=== PATIENT | female | born 1960 | race Two or more races ===

== ENCOUNTER 2020-06-08 21:10 | Inpatient (IN) | payer MEDICAID, OTHER ==
[~2020-06-08] VITALS: Ht 157.5 cm; Wt 76.2 kg
[2020-06-08] MEDS ORDERED: LORazepam 2MG/ML-1ML VIAL ONE (21:39)
[2020-06-08] MEDS ORDERED: LORazepam 2MG/ML-1ML VIAL IV ONE (21:45)
[2020-06-08 22:07] LABS: Basophils # (auto) 0 10 ^3/uL (0-0.2); Basophils % (auto) 0.3 % (0.0-2.0); Eosinophils # (auto) 0.1 10 ^3/uL (0-0.8); Eosinophils % (auto) 0.8 % (0.0-7.0); Hematocrit 29.7 % (36.0-46.0); Hemoglobin 9.5 g/dL (12.2-16.2); Lymphocytes # (auto) 0.3 10 ^3/uL (0.4-5.4); Lymphocytes % (auto) 2.7 % (10.0-50.0); Mean Corpuscular Hemoglobin 30.5 pg (28.0-32.0); Mean Corpuscular Hgb Conc. 31.9 g/dL (32.0-36.0); Mean Corpuscular Volume 95.7 fL (80.0-100.0); Monocytes # (auto) 0.4 10 ^3/uL (0-1.3); Monocytes % (auto) 3.6 % (0.0-12.0); Neutrophils # (auto) 9.2 10 ^3/uL (1.6-8.6); Neutrophils % (auto) 92.6 % (37.0-80.0); Platelet Count (auto) 169 10^3/uL (140-450); Red Blood Cells 3.11 10^6/uL (4.0-5.20)
[2020-06-08 22:29] LABS: Albumin 2.4 g/dL (3.4-5.0); Calcium 9.4 mg/dL (8.5-10.1); INR 0.92 (0.9-1.15); Partial Thromboplastin Time 25.7 sec (23.0-31.2)
[2020-06-08] MEDS ORDERED: ONDANSETRON HCL 4 MG/2 ML VIAL IV ONE (22:30)
[2020-06-08] MEDS ORDERED: MORPHINE SULFATE 4 MG/ML SYR/VIAL IV ONE (22:30)
[2020-06-08 22:36] LABS: BUN/Creatinine Ratio 6.9; Bilirubin, Total 0.4 mg/dL (0.2-1.0); Total Protein 5.8 g/dL (6.4-8.2)
[2020-06-08] MEDS ORDERED: ONDANSETRON HCL 4 MG/2 ML VIAL IV PRN (23:15)
[2020-06-08] MEDS ORDERED: MORPHINE SULF INJ 2 MG/ML SYRINGE 1ML IV PRN (23:15)
[2020-06-08] MEDS ORDERED: NITROGLYCERIN 0.4 MG SL TAB SL PRN (23:15)
[2020-06-08] MEDS ORDERED: HYDROcodone-ACET 5/325MG TAB PO PRN (23:15)
[2020-06-08] MEDS ORDERED: ACETAMINOPHEN 325 MG TAB PO PRN (23:15)
[2020-06-08] MEDS ORDERED: DEXTROSE (50%) 50ML SYRG IV PRN (23:15)
[2020-06-08] MEDS ORDERED: NOREPINEPHRINE 8 MG/250ML KIT 250 ML IV ONE (23:38)
[2020-06-09] VITALS (53 sets, daily range): BP systolic 91–148; BP diastolic 29–72
[2020-06-09] MEDS ORDERED: NOREPINEPHRINE 8 MG/250ML KIT 250 ML IV SCH ×2 (00:15→11:45)
[2020-06-09] MEDS ORDERED: DOPamine 1600MCG/ML D5W 250 ML IV ONE ×2 (00:19→00:22)
[2020-06-09] MEDS: DOPamine 1600MCG/ML D5W 250 ML IV SCH ×3 (00:25→10:30)
[2020-06-09] MEDS: ACCU-CHEK COMFORT CURVE STRIP VI SCH ×5 (00:48→23:59)
[2020-06-09] MEDS: InsuLIN REG 1unit/0.01ml Soln (100units/ml) SC SCH ×4 (00:51→18:30)
[2020-06-09] MEDS ORDERED: ONDANSETRON HCL 4 MG/2 ML VIAL IV ONE (01:30)
[2020-06-09] MEDS ORDERED: MORPHINE SULFATE 4 MG/ML SYR/VIAL IV ONE (01:30)
[2020-06-09 10:14] LABS: Basophils # (auto) 0.1 10 ^3/uL (0-0.2); Basophils % (auto) 0.9 % (0.0-2.0); Eosinophils # (auto) 0.1 10 ^3/uL (0-0.8); Eosinophils % (auto) 0.7 % (0.0-7.0); Hematocrit 33.1 % (36.0-46.0); Hemoglobin 10.5 g/dL (12.2-16.2); Lymphocytes # (auto) 0.8 10 ^3/uL (0.4-5.4); Mean Corpuscular Hemoglobin 30.2 pg (28.0-32.0); Mean Corpuscular Hgb Conc. 31.7 g/dL (32.0-36.0); Mean Corpuscular Volume 95.4 fL (80.0-100.0); Monocytes # (auto) 0.9 10 ^3/uL (0-1.3); Monocytes % (auto) 5.7 % (0.0-12.0); Neutrophils # (auto) 13.3 10 ^3/uL (1.6-8.6); Neutrophils % (auto) 87.7 % (37.0-80.0); Platelet Count (auto) 231 10^3/uL (140-450); Red Blood Cells 3.47 10^6/uL (4.0-5.20); White Blood Cell 15.2 10^3/uL (4.4-10.8)
[2020-06-09 10:17] LABS: Albumin 2.6 g/dL (3.4-5.0); Calcium 9.9 mg/dL (8.5-10.1); Potassium 4.5 mmol/L (3.5-5.1)
[2020-06-09 10:20] LABS: BUN/Creatinine Ratio 7.1; Bilirubin, Total 0.4 mg/dL (0.2-1.0); Total Protein 6.8 g/dL (6.4-8.2)
[2020-06-09] MEDS: PANTOPRAZOLE 40 MG TAB PO SCH (10:30)
[2020-06-09] MEDS: ASPirin 81 mg TAB PO SCH ×2 (10:41→18:29)
[2020-06-09] MEDS: PERITONEAL DIALYSIS 2.5% SOLN 2,000 ML IP SCH ×4 (12:20→22:11)
[2020-06-09] MEDS ORDERED: KETOROLAC TROMETH 30 MG/ML 1ML VIAL IV PRN (13:30)
[2020-06-09] MEDS ORDERED: fentaNYL CITRATE 100 MCG/2 ML VL ONE (14:23)
[2020-06-09] MEDS ORDERED: VANCOMYCIN HCL 1000 MG VL ONE (14:23)
[2020-06-09] MEDS ORDERED: MIDAZOLAM HCL 1MG/1ML-2 ML VIAL ONE (14:23)
[2020-06-09] MEDS ORDERED: LIDOCAINE 2%HCL (LOCAL ANESTH.) INJ 20ML MDV ONE (14:23)
[2020-06-09] MEDS ORDERED: VANCOMYCIN 1GM/250ML 250 ML IV ONE (14:24)
[2020-06-09] MEDS ORDERED: FUROSEMIDE 20 MG/2 ML VIAL ONE (15:27)
[2020-06-09] MEDS: ceFAZolin 1GM/50ML 50 ML IV SCH ×2 (18:29→23:54)
[2020-06-09] MEDS: VANCOMYCIN 1GM/250ML 250 ML IV SCH (21:46)
[2020-06-09] MEDS ORDERED: ATORVASTATIN 20 MG TAB PO SCH (22:00)
[2020-06-10] VITALS (30 sets, daily range): BP systolic 100–146; BP diastolic 49–80
[2020-06-10] MEDS: PERITONEAL DIALYSIS 2.5% SOLN 2,000 ML IP SCH ×3 (02:45→10:56)
[2020-06-10] MEDS ORDERED: SEVE800T8 PO (03:31)
[2020-06-10] MEDS ORDERED: GEN03OS HM (03:34)
[2020-06-10] MEDS ORDERED: EPOE20005 IJ (03:36)
[2020-06-10] MEDS ORDERED: PRE5T PO (03:41)
[2020-06-10] MEDS ORDERED: AMOX250C3 PO (03:43)
[2020-06-10] MEDS ORDERED: POTA-220 PO (03:44)
[2020-06-10] MEDS ORDERED: ALBU108A5 IN (03:47)
[2020-06-10] MEDS ORDERED: CALC0.253 PO (03:51)
[2020-06-10] MEDS ORDERED: CINA30TA2 PO (03:52)
[2020-06-10] MEDS ORDERED: SIMV10TA73 PO (03:54)
[2020-06-10] MEDS ORDERED: GLIP10TA3 PO (03:59)
[2020-06-10] MEDS ORDERED: [UNRECOGNIZED DRUG - CODE] TOP (04:00)
[2020-06-10] MEDS ORDERED: LEFL20TA PO (04:01)
[2020-06-10] MEDS ORDERED: ACET-1156 PO (04:02)
[2020-06-10 05:01] LABS: Basophils # (auto) 0 10 ^3/uL (0-0.2); Basophils % (auto) 0.3 % (0.0-2.0); Eosinophils # (auto) 0.2 10 ^3/uL (0-0.8); Eosinophils % (auto) 2.6 % (0.0-7.0); Hematocrit 28.5 % (36.0-46.0); Hemoglobin 9.2 g/dL (12.2-16.2); Lymphocytes # (auto) 0.7 10 ^3/uL (0.4-5.4); Mean Corpuscular Hemoglobin 30.7 pg (28.0-32.0); Mean Corpuscular Hgb Conc. 32.3 g/dL (32.0-36.0); Mean Corpuscular Volume 95.2 fL (80.0-100.0); Monocytes # (auto) 0.4 10 ^3/uL (0-1.3); Monocytes % (auto) 4.6 % (0.0-12.0); Neutrophils # (auto) 8.1 10 ^3/uL (1.6-8.6); Neutrophils % (auto) 85.5 % (37.0-80.0); Platelet Count (auto) 164 10^3/uL (140-450); Red Blood Cells 2.99 10^6/uL (4.0-5.20); White Blood Cell 9.5 10^3/uL (4.4-10.8)
[2020-06-10 05:22] LABS: Red Cell Distribution Width 21.4 % (11.8-14.3)
[2020-06-10 05:43] LABS: Albumin 2.2 g/dL (3.4-5.0); Calcium 9.3 mg/dL (8.5-10.1)
[2020-06-10] MEDS: ACCU-CHEK COMFORT CURVE STRIP VI SCH ×2 (05:44→12:00)
[2020-06-10] MEDS: InsuLIN REG 1unit/0.01ml Soln (100units/ml) SC SCH ×3 (05:44→12:00)
[2020-06-10 05:47] LABS: Bilirubin, Total 0.4 mg/dL (0.2-1.0); Total Protein 5.6 g/dL (6.4-8.2)
[2020-06-10] MEDS: ceFAZolin 1GM/50ML 50 ML IV SCH (08:10)
[2020-06-10] MEDS: ASPirin 81 mg TAB PO SCH (09:55)
[2020-06-10] MEDS: PANTOPRAZOLE 40 MG TAB PO SCH (09:55)
[2020-06-10] MEDS: VANCOMYCIN 1GM/250ML 250 ML IV SCH (09:56)
[2020-06-10] MEDS ORDERED: predniSONE 5 MG TAB PO ONE (11:00)
[2020-06-10] MEDS ORDERED: SEVELAMER 800 MG TAB PO SCH (12:00)
[2020-06-10] MEDS ORDERED: DOXY-286 PO (12:06)
== END 2020-06-10 16:14 | disposition home or self-care (01) | DRG 171 ==
LOC: EDBD 21:10 → ER 21:14 → TELE 21:15 → ICU WEST 06-09 04:00
PROVIDERS: ADMIT Nurse Practitioner; ATTEND Internal Medicine
PROC: 3E1M39Z Irrigation of Peritoneal Cavity using Dialysate, Percutaneous Approach (ICD-10-PCS; 2020-06-09)
PROC: 0JH606Z Insertion of Pacemaker, Dual Chamber into Chest Subcutaneous Tissue and Fascia, Open Approach (ICD-10-PCS; principal; 2020-06-10)
PROC: 02H63JZ Insertion of Pacemaker Lead into Right Atrium, Percutaneous Approach (ICD-10-PCS; 2020-06-10)
PROC: 02HK3JZ Insertion of Pacemaker Lead into Right Ventricle, Percutaneous Approach (ICD-10-PCS; 2020-06-10)
DX: I44.2 Atrioventricular block, complete (principal); E11.22 Type 2 diabetes mellitus with diabetic chronic kidney disease; N18.6 End stage renal disease; D63.1 Anemia in chronic kidney disease; I50.32 Chronic diastolic (congestive) heart failure; R65.10 Systemic inflammatory response syndrome (SIRS) of non-infectious origin without acute organ dysfunction; I13.2 Hypertensive heart and chronic kidney disease with heart failure and with stage 5 chronic kidney disease, or end stage renal disease; E83.39 Other disorders of phosphorus metabolism; Z20.828 Contact with and (suspected) exposure to other viral communicable diseases; I05.0 Rheumatic mitral stenosis; Z99.2 Dependence on renal dialysis; Z88.8 Allergy status to other drugs, medicaments and biological substances; Z79.899 Other long term (current) drug therapy; R00.1 Bradycardia, unspecified; E44.0 Moderate protein-calorie malnutrition; Z68.26 Body mass index [BMI] 26.0-26.9, adult
CPT/HCPCS: 33208; 36415; 71045; 80053; 82306; 82962; 83036; 83735; 83880; 83970; 84100; 84443; 84484; 85025; 85379; 85610; 85730; 87040; 87081; 87205; 89051; 93005; 93306; 99152; 99291; C1785; G0378; J0690; J1815; J2250; J2405

== ENCOUNTER 2020-06-12 17:08 | Inpatient (IN) | payer MEDICAID ==
[~2020-06-12] VITALS: Ht 157.5 cm; Wt 72.6 kg
[~2020-06-12 17:08] MED LIST: ACET-1156 PO; ALBU108A5 IN; AMOX250C3 PO; CALC0.253 PO; CINA30TA2 PO; DOXY-286 PO; EPOE20005 IJ; GEN03OS HM; GLIP10TA3 PO; LEFL20TA PO; POTA-220 PO; PRE5T PO; SEVE800T8 PO; SIMV10TA73 PO; [UNRECOGNIZED DRUG - CODE] TOP
[2020-06-12] MEDS ORDERED: ONDANSETRON HCL 4 MG/2 ML VIAL IV ONE (17:30)
[2020-06-12] MEDS ORDERED: MORPHINE SULFATE 4 MG/ML SYR/VIAL IV ONE (17:30)
[2020-06-12 18:56] LABS: Hematocrit 29.8 % (36.0-46.0); Hemoglobin 9.6 g/dL (12.2-16.2); Mean Corpuscular Hemoglobin 30.5 pg (28.0-32.0); Mean Corpuscular Hgb Conc. 32.1 g/dL (32.0-36.0); Platelet Count (auto) 183 10^3/uL (140-450); Red Blood Cells 3.14 10^6/uL (4.0-5.20); White Blood Cell 9.1 10^3/uL (4.4-10.8)
[2020-06-12 18:58] LABS: Red Cell Distribution Width 21.7 % (11.8-14.3)
[2020-06-12 19:00] LABS: Band Neutrophils % (manual) 0; Basophils % (manual) 0 (0.0-2.0); Blast Cells 0; Metamyelocytes % 0; Myelocytes % 0; Promyelocytes % 0; Reactive Lymphocytes 0
[2020-06-12 19:19] LABS: Calcium 9.7 mg/dL (8.5-10.1); Chloride 100 mmol/L (98-107); Potassium 3.9 mmol/L (3.5-5.1); Sodium 137 mmol/L (136-145)
[2020-06-12 19:27] LABS: Alanine Aminotransferase < 6 U/L (13-56); Albumin 2.3 g/dL (3.4-5.0); Alkaline Phosphatase 125 U/L (45-117); Anion Gap 10 (5-15); Aspartate Aminotransferase 16 U/L (15-37); Bilirubin, Total 0.4 mg/dL (0.2-1.0); Blood Urea Nitrogen 71 mg/dL (7-18); Carbon Dioxide 27 mmol/L (21-32); GFR African American 5 mL/min; GFR Non-African American 4 mL/min; Glucose 102 mg/dL (74-106); Lipase 302 U/L (73-393); Total Protein 6.3 g/dL (6.4-8.2)
[2020-06-12 19:31] LABS: Eosinophils % (manual) 2 (0-7); Lymphocytes % (manual) 1 (10.0-50.0); Monocytes % (manual) 5 (0-12)
[2020-06-12] MEDS ORDERED: NITROGLYCERIN 0.4 MG SL TAB SL PRN (22:30)
[2020-06-12] MEDS ORDERED: ACETAMINOPHEN 325 MG TAB PO PRN (22:30)
[2020-06-12] MEDS ORDERED: MORPHINE SULF INJ 2 MG/ML SYRINGE 1ML IV PRN (22:30)
[2020-06-12] MEDS ORDERED: MORPHINE SULFATE 4 MG/ML SYR/VIAL IV PRN (22:30)
[2020-06-12] MEDS ORDERED: ONDANSETRON HCL 4 MG/2 ML VIAL IV PRN (22:30)
[2020-06-12] MEDS ORDERED: DOCUSATE SOD 100 MG CAP PO PRN (22:30)
[2020-06-12] MEDS ORDERED: EPOETIN ALFA 20000 UNIT IJ SCH (22:45)
[2020-06-12] MEDS ORDERED: GLIPIZIDE 10 MG PO SCH (22:45)
[2020-06-12] MEDS ORDERED: ALBUTEROL SULF HFA 90MCG INH 200DOSE IN SCH (22:45)
[2020-06-12] MEDS ORDERED: DEXTROSE (50%) 50ML SYRG IV PRN (23:30)
[2020-06-12] MEDS ORDERED: ALBUTEROL SULF 2.5 MG/0.5ML(0.5%) NEB SOLN NEB PRN (23:45)
[2020-06-13 00:35] LABS: Basophils # (auto) 0 10 ^3/uL (0-0.2); Basophils % (auto) 0.4 % (0.0-2.0); Eosinophils # (auto) 0.3 10 ^3/uL (0-0.8); Eosinophils % (auto) 2.8 % (0.0-7.0); Hematocrit 27.8 % (36.0-46.0); Lymphocytes # (auto) 0.7 10 ^3/uL (0.4-5.4); Lymphocytes % (auto) 7.8 % (10.0-50.0); Mean Corpuscular Hemoglobin 30.5 pg (28.0-32.0); Mean Corpuscular Hgb Conc. 32.4 g/dL (32.0-36.0); Mean Corpuscular Volume 94.1 fL (80.0-100.0); Monocytes # (auto) 0.5 10 ^3/uL (0-1.3); Monocytes % (auto) 5.1 % (0.0-12.0); Neutrophils # (auto) 7.9 10 ^3/uL (1.6-8.6); Neutrophils % (auto) 83.9 % (37.0-80.0); Nucleated Red Blood Cells % 0.1 %; Platelet Count (auto) 179 10^3/uL (140-450); Red Blood Cells 2.95 10^6/uL (4.0-5.20); White Blood Cell 9.4 10^3/uL (4.4-10.8)
[2020-06-13 00:44] LABS: Red Cell Distribution Width 21.6 % (11.8-14.3)
[2020-06-13 00:53] LABS: Alanine Aminotransferase < 6 U/L (13-56); Albumin 2.2 g/dL (3.4-5.0); Anion Gap 14 (5-15); Aspartate Aminotransferase 13 U/L (15-37); BUN/Creatinine Ratio 6.6; Blood Urea Nitrogen 70 mg/dL (7-18); Calcium 9.6 mg/dL (8.5-10.1); Carbon Dioxide 25 mmol/L (21-32); Chloride 100 mmol/L (98-107); GFR African American 5 mL/min; GFR Non-African American 4 mL/min; Glucose 55 mg/dL (74-106); Potassium 4.1 mmol/L (3.5-5.1); Sodium 139 mmol/L (136-145)
[2020-06-13 00:55] LABS: Alkaline Phosphatase 116 U/L (45-117); Bilirubin, Total 0.4 mg/dL (0.2-1.0)
[2020-06-13 01:29] VITALS: BP 111/48
[2020-06-13] MEDS ORDERED: SODIUM CHLOR 0.9% PF (SALINE LOCK) 10ML VIAL/SYR IV SCH (06:00)
[2020-06-13] MEDS ORDERED: SEVELAMER 800 MG TAB PO SCH (06:00)
[2020-06-13] MEDS ORDERED: ACCU-CHEK COMFORT CURVE STRIP VI SCH (07:00)
[2020-06-13] MEDS ORDERED: InsuLIN REG 1unit/0.01ml Soln (100units/ml) SC SCH ×2 (07:00→22:00)
[2020-06-13] MEDS ORDERED: EPOETIN ALFA 10,000 UNIT/1 ML VIAL SC SCH (07:15)
[2020-06-13] MEDS ORDERED: ASPirin 81 mg TAB PO SCH (10:00)
[2020-06-13] MEDS ORDERED: PANTOPRAZOLE 40 MG/10 ML VIAL INJ IV SCH (10:00)
[2020-06-13] MEDS ORDERED: CALCITRIOL 0.25 MCG CAP PO SCH (10:00)
[2020-06-13] MEDS ORDERED: ENOXAPARIN SOD 40 MG/0.4 ML SYRINGE SC SCH (10:00)
[2020-06-13] MEDS ORDERED: FAMOTIDINE 20 MG TAB PO SCH (10:00)
[2020-06-13] MEDS ORDERED: LEFLUNOMIDE 20 MG PO SCH (10:00)
== END 2020-06-13 02:10 | disposition short-term general hospital (02) | DRG 254 ==
LOC: EDBD 17:08 → EDUNIT# 17:08 → ER 17:08 → TELE 17:09
PROVIDERS: ADMIT Nurse Practitioner Family; ATTEND Nurse Practitioner Family
DX: K59.00 Constipation, unspecified (principal); E11.22 Type 2 diabetes mellitus with diabetic chronic kidney disease; I12.0 Hypertensive chronic kidney disease with stage 5 chronic kidney disease or end stage renal disease; N18.6 End stage renal disease; D64.9 Anemia, unspecified; E78.5 Hyperlipidemia, unspecified; F32.9 Major depressive disorder, single episode, unspecified; Z83.3 Family history of diabetes mellitus; Z99.2 Dependence on renal dialysis; Z88.8 Allergy status to other drugs, medicaments and biological substances; Z79.4 Long term (current) use of insulin
CPT/HCPCS: 36415; 71045; 74176; 76700; 80053; 82962; 83036; 83690; 84484; 85007; 85025; 85027; G0378

== ENCOUNTER 2020-09-15 12:27 | Inpatient (IN) | payer MEDICAID ==
[~2020-09-15] VITALS: Ht 152.4 cm; Wt 75.1 kg
[~2020-09-15 12:27] MED LIST changes: +SIMV10TA2 PO; -SIMV10TA73 PO
[2020-09-15] MEDS ORDERED: ASPirin 81 mg TAB PO ONE (13:15)
[2020-09-15 13:54] LABS: Albumin 2.6 g/dL (3.4-5.0); Anion Gap 11 (5-15); BUN/Creatinine Ratio 5.5; Basophils # (auto) 0.1 10 ^3/uL (0-0.2); Basophils % (auto) 0.5 % (0.0-2.0); Blood Urea Nitrogen 57 mg/dL (7-18); Calcium 9.3 mg/dL (8.5-10.1); Carbon Dioxide 24 mmol/L (21-32); Chloride 103 mmol/L (98-107); GFR African American 5 mL/min; GFR Non-African American 4 mL/min; Glucose 231 mg/dL (74-106); Hemoglobin 8.7 g/dL (12.2-16.2); Lymphocytes # (auto) 0.8 10 ^3/uL (0.4-5.4); Sodium 138 mmol/L (136-145)
[2020-09-15 13:55] LABS: Eosinophils # (auto) 0.2 10 ^3/uL (0-0.8); Hematocrit 27.6 % (36.0-46.0); Lymphocytes % (auto) 6.6 % (10.0-50.0); Mean Corpuscular Hemoglobin 29.9 pg (28.0-32.0); Mean Corpuscular Hgb Conc. 31.6 g/dL (32.0-36.0); Mean Corpuscular Volume 94.6 fL (80.0-100.0); Monocytes # (auto) 0.6 10 ^3/uL (0-1.3); Monocytes % (auto) 4.7 % (0.0-12.0); Neutrophils % (auto) 86.2 % (37.0-80.0); Nucleated Red Blood Cells % 0.1 %; Platelet Count (auto) 258 10^3/uL (140-450); Red Blood Cells 2.92 10^6/uL (4.0-5.20); Red Cell Distribution Width 18.8 % (11.8-14.3); White Blood Cell 12.7 10^3/uL (4.4-10.8)
[2020-09-15 14:05] LABS: Alanine Aminotransferase 28 U/L (13-56); Alkaline Phosphatase 130 U/L (45-117); Aspartate Aminotransferase 17 U/L (15-37); Bilirubin, Total 0.4 mg/dL (0.2-1.0); Total Protein 6.5 g/dL (6.4-8.2)
[2020-09-15] MEDS ORDERED: DEXTROSE (50%) 50ML SYRG IV PRN ×2 (16:45→18:00)
[2020-09-15] MEDS ORDERED: NITROGLYCERIN 0.4 MG SL TAB SL PRN ×2 (16:45→18:00)
[2020-09-15] MEDS ORDERED: MORPHINE SULF INJ 2 MG/ML SYRINGE 1ML IV PRN ×3 (16:45→18:00)
[2020-09-15] MEDS ORDERED: InsuLIN REG 1unit/0.01ml Soln (100units/ml) SC SCH ×2 (17:00→22:00)
[2020-09-15] MEDS ORDERED: ACCU-CHEK COMFORT CURVE STRIP VI SCH (17:00)
[2020-09-15] MEDS ORDERED: ALBUTEROL SULF HFA 90MCG INH 200DOSE IN PRN (18:00)
[2020-09-15] MEDS ORDERED: ACETAMINOPHEN 500 MG TAB PO PRN (18:00)
[2020-09-15] MEDS ORDERED: ALUM & MAG HYDROX-SIMETH LIQ(MAALOX) 30 ML PO PRN (18:00)
[2020-09-15] MEDS ORDERED: ONDANSETRON HCL 4 MG/2 ML VIAL IV PRN (18:00)
[2020-09-15] MEDS ORDERED: LORazepam 0.5 MG TAB PO PRN (18:00)
[2020-09-15] MEDS ORDERED: DOCUSATE SOD 100 MG CAP PO PRN (18:00)
[2020-09-15] MEDS ORDERED: HYDROcodone-ACET 5/325MG TAB PO PRN (18:00)
[2020-09-15] MEDS ORDERED: GENT0.1C3 TOP (18:09)
[2020-09-15] MEDS ORDERED: DOXE1CAP4 PO (18:12)
[2020-09-15] MEDS ORDERED: CETI10TA80 PO (18:12)
[2020-09-15] MEDS ORDERED: hydrALAZINE HCL 20 MG/ML VL IV PRN (19:15)
[2020-09-15] MEDS: ACCU-CHEK COMFORT CURVE STRIP VI SCH (21:54)
[2020-09-15] MEDS: ISOSORBIDE MONONITRATE IR 20 MG TAB PO SCH (21:54)
[2020-09-15] MEDS: ENOXAPARIN SOD 40 MG/0.4 ML SYRINGE SC SCH (21:54)
[2020-09-15] MEDS: InsuLIN REG 1unit/0.01ml Soln (100units/ml) SC SCH (21:54)
[2020-09-15] MEDS ORDERED: BUDESONIDE (INHALATION) 180 MCG IH IN SCH (22:00)
[2020-09-15 23:43] LABS: Basophils # (auto) 0 10 ^3/uL (0-0.2); Basophils % (auto) 0.4 % (0.0-2.0); Eosinophils # (auto) 0.1 10 ^3/uL (0-0.8); Eosinophils % (auto) 1.1 % (0.0-7.0); Hematocrit 29.2 % (36.0-46.0); Hemoglobin 9.5 g/dL (12.2-16.2); Lymphocytes # (auto) 1.2 10 ^3/uL (0.4-5.4); Lymphocytes % (auto) 12.8 % (10.0-50.0); Mean Corpuscular Hemoglobin 30.3 pg (28.0-32.0); Mean Corpuscular Hgb Conc. 32.5 g/dL (32.0-36.0); Mean Corpuscular Volume 93.4 fL (80.0-100.0); Monocytes # (auto) 0.5 10 ^3/uL (0-1.3); Monocytes % (auto) 5.6 % (0.0-12.0); Neutrophils # (auto) 7.5 10 ^3/uL (1.6-8.6); Neutrophils % (auto) 80.1 % (37.0-80.0); Platelet Count (auto) 236 10^3/uL (140-450); Red Blood Cells 3.13 10^6/uL (4.0-5.20); Red Cell Distribution Width 18.5 % (11.8-14.3); White Blood Cell 9.3 10^3/uL (4.4-10.8)
[2020-09-16 00:05] LABS: Calcium 9.4 mg/dL (8.5-10.1); Magnesium 3.1 mg/dL (1.6-2.6); Potassium 5.1 mmol/L (3.5-5.1)
[2020-09-16 00:16] LABS: Albumin 2.7 g/dL (3.4-5.0); BUN/Creatinine Ratio 5.8; Bilirubin, Total 0.5 mg/dL (0.2-1.0); CRP High Sensitivity 7.29 mg/dL (< 0.3); Total Protein 7.1 g/dL (6.4-8.2)
[2020-09-16 00:20] LABS: Cholesterol 152 mg/dL (< 200); HDL Cholesterol 94 mg/dL (40-59); LDL Cholesterol 60 mg/dL (< 100); Triglycerides 45 mg/dL (< 150)
[2020-09-16] MEDS: FUROSEMIDE 40 MG/4 ML VIAL IV SCH ×2 (06:00→17:36)
[2020-09-16] MEDS: ACCU-CHEK COMFORT CURVE STRIP VI SCH ×4 (06:56→23:15)
[2020-09-16] MEDS: InsuLIN REG 1unit/0.01ml Soln (100units/ml) SC SCH ×4 (06:57→22:00)
[2020-09-16 08:00] VITALS: BP 134/70
[2020-09-16] MEDS: SEVELAMER 800 MG TAB PO SCH ×3 (08:18→17:36)
[2020-09-16 08:22] LABS: Albumin 2.2 g/dL (3.4-5.0); Calcium 9.2 mg/dL (8.5-10.1); Potassium 4.6 mmol/L (3.5-5.1)
[2020-09-16 08:25] LABS: BUN/Creatinine Ratio 5.5; Bilirubin, Total 0.5 mg/dL (0.2-1.0); Total Protein 5.9 g/dL (6.4-8.2)
[2020-09-16 08:37] LABS: Basophils # (auto) 0 10 ^3/uL (0-0.2); Eosinophils # (auto) 0.3 10 ^3/uL (0-0.8); Hemoglobin 8.2 g/dL (12.2-16.2); Lymphocytes # (auto) 1.1 10 ^3/uL (0.4-5.4); Monocytes # (auto) 0.5 10 ^3/uL (0-1.3)
[2020-09-16 08:39] LABS: Basophils % (auto) 0.4 % (0.0-2.0); Eosinophils % (auto) 4.2 % (0.0-7.0); Hematocrit 25.4 % (36.0-46.0); Lymphocytes % (auto) 13.7 % (10.0-50.0); Mean Corpuscular Hemoglobin 30.1 pg (28.0-32.0); Mean Corpuscular Hgb Conc. 32.3 g/dL (32.0-36.0); Mean Corpuscular Volume 93.3 fL (80.0-100.0); Monocytes % (auto) 6.4 % (0.0-12.0); Neutrophils % (auto) 75.3 % (37.0-80.0); Platelet Count (auto) 180 10^3/uL (140-450); Red Blood Cells 2.72 10^6/uL (4.0-5.20); Red Cell Distribution Width 18.7 % (11.8-14.3)
[2020-09-16 09:07] VITALS: BP 134/70
[2020-09-16] MEDS ORDERED: CHOLECALCIFEROL (VITD3) 2,000 UNIT CAP PO SCH (10:00)
[2020-09-16] MEDS: DOXYCYCLINE 100MG/250ML 250 ML IV SCH ×3 (10:00→23:14)
[2020-09-16] MEDS: ENOXAPARIN SOD 40 MG/0.4 ML SYRINGE SC SCH ×2 (10:00→23:15)
[2020-09-16] MEDS ORDERED: DexAMETHasone SOD PHOS 10MG/1ML VIAL INJ IV SCH (10:00)
[2020-09-16] MEDS ORDERED: ZINC SULFATE 220mg CAP or TAB PO SCH (10:00)
[2020-09-16] MEDS ORDERED: ASCORBIC ACID 1,000 MG TAB PO SCH (10:00)
[2020-09-16] MEDS: ISOSORBIDE MONONITRATE IR 20 MG TAB PO SCH ×2 (10:31→22:00)
[2020-09-16 16:00] VITALS: BP 122/68
[2020-09-16 22:07] LABS: Urine Bacteria NONE SEEN /hpf (None Seen); Urine Blood 1+ /uL (Negative); Urine Specific Gravity 1.013 (1.001-1.035); Urine WBC 5 /hpf (0 - 5)
[2020-09-16 22:20] LABS: Amphetamine Screen, Urine NEGATIVE (NEGATIVE); Barbiturate Scree,Urine NEGATIVE (NEGATIVE); Benzodiazephine Screen, Urine NEGATIVE (NEGATIVE); Cannabinoid Screen, Urine NEGATIVE (NEGATIVE); Cocaine Screen, Urine NEGATIVE (NEGATIVE); Opiate Scree,Urine NEGATIVE (NEGATIVE); Phencyclidine Screen, Urine NEGATIVE (NEGATIVE)
[2020-09-16 23:58] VITALS: BP 110/78
[2020-09-17] MEDS ORDERED: METO25TA5 PO (03:11)
[2020-09-17] MEDS ORDERED: BENZ100C97 PO (03:11)
[2020-09-17] MEDS ORDERED: HYDR-3682 PO (03:11)
[2020-09-17] MEDS ORDERED: HYDR50TA69 PO (03:11)
[2020-09-17] MEDS: ACCU-CHEK COMFORT CURVE STRIP VI SCH ×4 (05:36→22:21)
[2020-09-17] MEDS: InsuLIN REG 1unit/0.01ml Soln (100units/ml) SC SCH ×4 (05:36→22:00)
[2020-09-17] MEDS: FUROSEMIDE 40 MG/4 ML VIAL IV SCH ×2 (05:36→17:48)
[2020-09-17 08:00] VITALS: BP 114/67
[2020-09-17] MEDS: SEVELAMER 800 MG TAB PO SCH ×3 (08:00→18:21)
[2020-09-17] MEDS: ENOXAPARIN SOD 40 MG/0.4 ML SYRINGE SC SCH ×2 (09:44→22:21)
[2020-09-17] MEDS: DOXYCYCLINE 100MG/250ML 250 ML IV SCH ×2 (09:44→22:20)
[2020-09-17] MEDS: ISOSORBIDE MONONITRATE IR 20 MG TAB PO SCH ×2 (10:00→22:25)
[2020-09-17] MEDS: PERITONEAL DIALYSIS 2.5% SOLN 2,000 ML IP SCH ×3 (12:00→22:00)
[2020-09-17 16:00] VITALS: BP 126/75
[2020-09-17 22:00] VITALS: BP 146/73
[2020-09-18] MEDS: hydrOXYzine 25 MG TAB or CAP PO PRN ×2 (00:51→19:45)
[2020-09-18 05:00] VITALS: BP 113/55
[2020-09-18] MEDS: PERITONEAL DIALYSIS 2.5% SOLN 2,000 ML IP SCH ×4 (06:00→21:52)
[2020-09-18] MEDS: ACCU-CHEK COMFORT CURVE STRIP VI SCH ×4 (06:02→21:53)
[2020-09-18] MEDS: FUROSEMIDE 40 MG/4 ML VIAL IV SCH ×2 (06:02→17:57)
[2020-09-18] MEDS: InsuLIN REG 1unit/0.01ml Soln (100units/ml) SC SCH ×4 (06:03→21:53)
[2020-09-18 08:00] VITALS: BP 122/69
[2020-09-18] MEDS: SEVELAMER 800 MG TAB PO SCH ×3 (09:52→17:57)
[2020-09-18] MEDS: ISOSORBIDE MONONITRATE IR 20 MG TAB PO SCH ×2 (09:53→22:13)
[2020-09-18] MEDS: ENOXAPARIN SOD 40 MG/0.4 ML SYRINGE SC SCH ×2 (09:53→21:53)
[2020-09-18] MEDS: DOXYCYCLINE 100MG/250ML 250 ML IV SCH ×2 (09:54→21:52)
[2020-09-18 16:00] VITALS: BP 125/69
[2020-09-18 21:29] VITALS: BP 111/62
[2020-09-19 05:21] VITALS: BP 114/52
[2020-09-19] MEDS: FUROSEMIDE 40 MG/4 ML VIAL IV SCH (05:27)
[2020-09-19] MEDS: PERITONEAL DIALYSIS 2.5% SOLN 2,000 ML IP SCH (06:00)
[2020-09-19] MEDS: ACCU-CHEK COMFORT CURVE STRIP VI SCH (06:17)
[2020-09-19] MEDS: InsuLIN REG 1unit/0.01ml Soln (100units/ml) SC SCH (06:20)
[2020-09-19 06:43] LABS: Basophils # (auto) 0 10 ^3/uL (0-0.2); Eosinophils # (auto) 0.3 10 ^3/uL (0-0.8); Monocytes # (auto) 0.4 10 ^3/uL (0-1.3); Neutrophils # (auto) 5.4 10 ^3/uL (1.6-8.6)
[2020-09-19 06:46] LABS: Basophils % (auto) 0.4 % (0.0-2.0); Hematocrit 24.4 % (36.0-46.0); Hemoglobin 8.1 g/dL (12.2-16.2); Lymphocytes # (auto) 0.8 10 ^3/uL (0.4-5.4); Lymphocytes % (auto) 11.8 % (10.0-50.0); Mean Corpuscular Hemoglobin 30.9 pg (28.0-32.0); Mean Corpuscular Hgb Conc. 33.4 g/dL (32.0-36.0); Mean Corpuscular Volume 92.7 fL (80.0-100.0); Monocytes % (auto) 5.2 % (0.0-12.0); Neutrophils % (auto) 77.6 % (37.0-80.0); Platelet Count (auto) 174 10^3/uL (140-450); Red Blood Cells 2.63 10^6/uL (4.0-5.20); Red Cell Distribution Width 18.1 % (11.8-14.3)
[2020-09-19 06:58] LABS: Potassium 4.3 mmol/L (3.5-5.1)
[2020-09-19 07:05] LABS: Albumin 2.3 g/dL (3.4-5.0); BUN/Creatinine Ratio 5.6; Bilirubin, Total 0.4 mg/dL (0.2-1.0); Total Protein 5.9 g/dL (6.4-8.2)
[2020-09-19 08:00] VITALS: BP 106/54
[2020-09-19] MEDS: SEVELAMER 800 MG TAB PO SCH ×2 (09:09→13:00)
[2020-09-19] MEDS: ISOSORBIDE MONONITRATE IR 20 MG TAB PO SCH (10:00)
[2020-09-19 12:56] VITALS: BP 106/52
[2020-09-19] MEDS: ENOXAPARIN SOD 40 MG/0.4 ML SYRINGE SC SCH (13:00)
[2020-09-19] MEDS: DOXYCYCLINE 100MG/250ML 250 ML IV SCH (13:00)
== END 2020-09-19 14:30 | disposition home or self-care (01) | DRG 133 ==
LOC: ER 12:27 → TELE 12:28 → TELE-WESTW 09-16 08:29 → TELE-CENTR 09-17 18:07
PROVIDERS: ADMIT Hospitalist; ATTEND Family Medicine
PROC: 4B02XSZ Measurement of Cardiac Pacemaker, External Approach (ICD-10-PCS; principal; 2020-09-18)
DX: J96.20 Acute and chronic respiratory failure, unspecified whether with hypoxia or hypercapnia (principal); E43 Unspecified severe protein-calorie malnutrition; J18.9 Pneumonia, unspecified organism; I50.33 Acute on chronic diastolic (congestive) heart failure; I44.2 Atrioventricular block, complete; I13.2 Hypertensive heart and chronic kidney disease with heart failure and with stage 5 chronic kidney disease, or end stage renal disease; N18.6 End stage renal disease; E11.65 Type 2 diabetes mellitus with hyperglycemia; E11.42 Type 2 diabetes mellitus with diabetic polyneuropathy; E11.40 Type 2 diabetes mellitus with diabetic neuropathy, unspecified; E11.22 Type 2 diabetes mellitus with diabetic chronic kidney disease; E78.00 Pure hypercholesterolemia, unspecified; E78.5 Hyperlipidemia, unspecified; D63.1 Anemia in chronic kidney disease; M19.90 Unspecified osteoarthritis, unspecified site; E66.9 Obesity, unspecified; I05.0 Rheumatic mitral stenosis; Z20.822 Contact with and (suspected) exposure to COVID-19; D72.829 Elevated white blood cell count, unspecified; Z68.30 Body mass index [BMI] 30.0-30.9, adult; Z79.84 Long term (current) use of oral hypoglycemic drugs; Z83.3 Family history of diabetes mellitus; Z95.0 Presence of cardiac pacemaker
CPT/HCPCS: 36415; 71045; 78582; 80053; 80061; 80307; 81001; 82306; 82728; 82962; 83036; 83605; 83615; 83735; 84443; 84484; 85025; 85379; 86141; 87040; 87205; 87426; 93005; 93306; 93970; 96372; 99291; G0378; J1100; J3490

== ENCOUNTER 2020-09-28 10:36 | Inpatient (IN) | payer MEDICAID ==
[~2020-09-28] VITALS: Ht 154.9 cm; Wt 73.5 kg
[~2020-09-28 10:36] MED LIST changes: +BENZ100C97 PO; -CALC0.253 PO; +CETI10TA80 PO; +DOXE1CAP4 PO; -GEN03OS HM; +GENT0.1C3 TOP; +HYDR-3682 PO; +HYDR50TA69 PO; +METO25TA5 PO
[2020-09-28] MEDS ORDERED: MORPHINE SULF INJ 2 MG/ML SYRINGE 1ML IV ONE (11:30)
[2020-09-28] MEDS ORDERED: ONDANSETRON HCL 4 MG/2 ML VIAL IV ONE (11:30)
[2020-09-28 11:44] LABS: Basophils # (auto) 0 10 ^3/uL (0-0.2); Basophils % (auto) 0.5 % (0.0-2.0); Eosinophils # (auto) 0.3 10 ^3/uL (0-0.8); Eosinophils % (auto) 3.5 % (0.0-7.0); Hemoglobin 10.3 g/dL (12.2-16.2); Lymphocytes # (auto) 1.1 10 ^3/uL (0.4-5.4); Lymphocytes % (auto) 12.5 % (10.0-50.0); Mean Corpuscular Hemoglobin 30.3 pg (28.0-32.0); Mean Corpuscular Hgb Conc. 32.3 g/dL (32.0-36.0); Mean Corpuscular Volume 93.9 fL (80.0-100.0); Monocytes # (auto) 0.5 10 ^3/uL (0-1.3); Monocytes % (auto) 5.5 % (0.0-12.0); Neutrophils # (auto) 6.6 10 ^3/uL (1.6-8.6); Nucleated Red Blood Cells % 0.1 %; Platelet Count (auto) 239 10^3/uL (140-450); Red Blood Cells 3.41 10^6/uL (4.0-5.20); White Blood Cell 8.5 10^3/uL (4.4-10.8)
[2020-09-28 11:58] LABS: INR 0.97 (0.9-1.15); Partial Thromboplastin Time 24.5 sec (23.0-31.2)
[2020-09-28 11:59] LABS: Albumin 2.6 g/dL (3.4-5.0); Calcium 9.6 mg/dL (8.5-10.1); Magnesium 2.7 mg/dL (1.6-2.6); Potassium 4.3 mmol/L (3.5-5.1)
[2020-09-28 12:08] LABS: Bilirubin, Total 0.5 mg/dL (0.2-1.0); Total Protein 6.8 g/dL (6.4-8.2)
[2020-09-28] MEDS ORDERED: LORazepam 0.5 MG TAB PO ONE (13:45)
[2020-09-28] MEDS ORDERED: MORPHINE SULF INJ 2 MG/ML SYRINGE 1ML IV PRN (14:45)
[2020-09-28] MEDS ORDERED: PANTOPRAZOLE 40 MG/10 ML VIAL INJ IV ONE ×2 (16:45→17:30)
[2020-09-28] MEDS ORDERED: LACTULOSE 20Gm/30ML SOLN PO PRN (17:30)
[2020-09-28] MEDS ORDERED: TEMAZEPAM 15 MG CAP PO PRN (17:30)
[2020-09-28] MEDS ORDERED: ENOXAPARIN SOD 80 MG/0.8ML SYRINGE SC ONE (17:30)
[2020-09-28] MEDS ORDERED: traMADol HCL 50 MG TAB PO PRN (17:30)
[2020-09-28] MEDS ORDERED: LIDOCAINE VISCOUS 2% 15ML UD PO ONE (17:30)
[2020-09-28] MEDS ORDERED: ALUM & MAG HYDROX-SIMETH LIQ(MAALOX) 30 ML PO ONE (17:30)
[2020-09-28] MEDS ORDERED: DONNATAL 5ml ORAL Elix (BELLADONNA ALK-PHENOBARB) PO ONE (17:30)
[2020-09-28] MEDS ORDERED: DEXTROSE (50%) 50ML SYRG IV PRN (17:30)
[2020-09-28] MEDS: PROMETHAZINE HCL 25 MG/ML 1ML IV PRN ×2 (18:51→23:35)
[2020-09-28] MEDS: MORPHINE SULF INJ 2 MG/ML SYRINGE 1ML IV PRN ×2 (18:51→23:32)
[2020-09-28] MEDS: NITROGLYCERIN 0.4 MG SL TAB SL PRN ×2 (20:23→20:29)
[2020-09-28] MEDS ORDERED: LIDOCAINE 2%HCL (LOCAL ANESTH.) INJ 20ML MDV ONE (20:27)
[2020-09-28] MEDS ORDERED: IODIXANOL 320MG/ML 100ML BTL IV ONE ×2 (20:27→21:27)
[2020-09-28 20:36] LABS: CRP High Sensitivity 2.06 mg/dL (< 0.3)
[2020-09-28] MEDS ORDERED: ANGIOMAX 250 MG VIAL IV ONE (20:41)
[2020-09-28] MEDS ORDERED: MIDAZOLAM HCL 1MG/1ML-2 ML VIAL ONE (20:42)
[2020-09-28] MEDS ORDERED: fentaNYL CITRATE 100 MCG/2 ML VL ONE (20:42)
[2020-09-28] MEDS ORDERED: SODIUM CHL 0.9% 50 ML ONE (20:42)
[2020-09-28] MEDS ORDERED: EPTIFIBATIDE INJ (2MG/ML) 10ML VIAL IV ONE (21:44)
[2020-09-28] MEDS ORDERED: EPTIFIBATIDE DRIP(0.75MG/ML) 100 ML IV ONE (21:56)
[2020-09-28] MEDS ORDERED: EPTIFIBATIDE DRIP(0.75MG/ML) 100 ML IV PRN (22:00)
[2020-09-28] MEDS ORDERED: TICAGRELOR 90 MG TAB ONE (22:07)
[2020-09-28 23:10] VITALS: BP 122/74
[2020-09-28] MEDS: SODIUM CHLOR 0.9% PF (SALINE LOCK) 10ML VIAL/SYR IV SCH (23:35)
[2020-09-28] MEDS: CARVEDILOL 3.125 MG TAB PO SCH (23:36)
[2020-09-28] MEDS: ACCU-CHEK COMFORT CURVE STRIP VI SCH (23:52)
[2020-09-28] MEDS: InsuLIN REG 1unit/0.01ml Soln (100units/ml) SC SCH (23:58)
[2020-09-29 00:48] VITALS: BP 122/74
[2020-09-29] MEDS ORDERED: GLIP10TA9 PO (02:46)
[2020-09-29] MEDS ORDERED: B-CO1TAB8 PO (02:46)
[2020-09-29] MEDS ORDERED: FOLI1TAB6 PO (02:46)
[2020-09-29] MEDS ORDERED: CHOL20007 PO (02:46)
[2020-09-29 05:25] VITALS: BP 114/62
[2020-09-29] MEDS: SODIUM CHLOR 0.9% PF (SALINE LOCK) 10ML VIAL/SYR IV SCH ×3 (06:24→21:54)
[2020-09-29] MEDS: InsuLIN REG 1unit/0.01ml Soln (100units/ml) SC SCH ×4 (06:27→21:57)
[2020-09-29] MEDS: ACCU-CHEK COMFORT CURVE STRIP VI SCH ×4 (06:30→21:56)
[2020-09-29 06:34] LABS: Basophils # (auto) 0 10 ^3/uL (0-0.2); Basophils % (auto) 0.3 % (0.0-2.0); Eosinophils # (auto) 0.1 10 ^3/uL (0-0.8); Eosinophils % (auto) 0.5 % (0.0-7.0); Hematocrit 28.3 % (36.0-46.0); Lymphocytes # (auto) 0.3 10 ^3/uL (0.4-5.4); Lymphocytes % (auto) 2.9 % (10.0-50.0); Mean Corpuscular Hemoglobin 30.5 pg (28.0-32.0); Mean Corpuscular Hgb Conc. 31.9 g/dL (32.0-36.0); Mean Corpuscular Volume 95.7 fL (80.0-100.0); Monocytes # (auto) 0.6 10 ^3/uL (0-1.3); Monocytes % (auto) 5.4 % (0.0-12.0); Neutrophils # (auto) 10.5 10 ^3/uL (1.6-8.6); Neutrophils % (auto) 90.9 % (37.0-80.0); Platelet Count (auto) 205 10^3/uL (140-450); Red Blood Cells 2.95 10^6/uL (4.0-5.20); Red Cell Distribution Width 18.7 % (11.8-14.3); White Blood Cell 11.6 10^3/uL (4.4-10.8)
[2020-09-29 06:43] LABS: Albumin 2.2 g/dL (3.4-5.0)
[2020-09-29 06:55] LABS: BUN/Creatinine Ratio 5.3; Bilirubin, Total 0.6 mg/dL (0.2-1.0); Total Protein 6.1 g/dL (6.4-8.2)
[2020-09-29 06:59] LABS: Potassium 5.9 mmol/L (3.5-5.1)
[2020-09-29 08:00] VITALS: BP 90/45
[2020-09-29] MEDS: EPTIFIBATIDE DRIP(0.75MG/ML) 100 ML IV SCH (09:34)
[2020-09-29] MEDS: FUROSEMIDE 40 MG/4 ML VIAL IV SCH (10:00)
[2020-09-29] MEDS ORDERED: NITROGLYCERIN 0.2MG/HR TOPICAL PATCH TD SCH (10:00)
[2020-09-29] MEDS ORDERED: ENOXAPARIN SOD 80 MG/0.8ML SYRINGE SC SCH (10:00)
[2020-09-29] MEDS: ASPirin 81 mg TAB PO SCH (10:36)
[2020-09-29] MEDS: CARVEDILOL 3.125 MG TAB PO SCH ×2 (10:37→21:56)
[2020-09-29] MEDS: PANTOPRAZOLE 40 MG TAB PO SCH (10:37)
[2020-09-29] MEDS: TICAGRELOR 90 MG TAB PO SCH ×2 (10:39→21:54)
[2020-09-29] MEDS ORDERED: SODIUM CHL 0.9% 1000 ML BAG XX ONE (10:45)
[2020-09-29] MEDS ORDERED: InsuLIN REG 1unit/0.01ml Soln (100units/ml) IV ONE (11:15)
[2020-09-29] MEDS ORDERED: CALCIUM GLUC 4.65meq/50ml D5AE 50 ML IV ONE (11:15)
[2020-09-29] MEDS ORDERED: DEXTROSE (50%) 50ML SYRG IV ONE (11:15)
[2020-09-29] MEDS ORDERED: SODIUM ZIRCONIUM CYCL 10 GM PAK PO ONE (11:15)
[2020-09-29] MEDS: SODIUM ZIRCONIUM CYCL 10 GM PAK PO SCH ×3 (12:19→23:44)
[2020-09-29] MEDS: PERITONEAL DIALYSIS 2.5% SOLN 2,000 ML IP SCH ×3 (14:27→22:15)
[2020-09-29 16:00] VITALS: BP 99/61
[2020-09-29 17:50] LABS: Calcium 9.1 mg/dL (8.5-10.1); Potassium 5.1 mmol/L (3.5-5.1)
[2020-09-29 17:52] LABS: BUN/Creatinine Ratio 5.4
[2020-09-29] MEDS: ACETAMINOPHEN 500 MG TAB PO PRN (20:00)
[2020-09-29] MEDS ORDERED: EPOETIN ALFA 10,000 UNIT/1 ML VIAL SC ONE (21:00)
[2020-09-29] MEDS: ATORVASTATIN 20 MG TAB PO SCH ×2 (21:56)
[2020-09-30] VITALS: BP 105/54
[2020-09-30] MEDS: EPTIFIBATIDE DRIP(0.75MG/ML) 100 ML IV SCH ×2 (01:30→12:33)
[2020-09-30] MEDS: PERITONEAL DIALYSIS 2.5% SOLN 2,000 ML IP SCH ×6 (02:04→23:05)
[2020-09-30 06:00] VITALS: BP 139/109
[2020-09-30] MEDS: ACCU-CHEK COMFORT CURVE STRIP VI SCH ×4 (06:00→21:46)
[2020-09-30] MEDS: SODIUM CHLOR 0.9% PF (SALINE LOCK) 10ML VIAL/SYR IV SCH ×3 (06:00→22:05)
[2020-09-30] MEDS: InsuLIN REG 1unit/0.01ml Soln (100units/ml) SC SCH ×4 (06:45→22:18)
[2020-09-30 07:12] LABS: Basophils # (auto) 0 10 ^3/uL (0-0.2); Basophils % (auto) 0.3 % (0.0-2.0); Eosinophils # (auto) 0.3 10 ^3/uL (0-0.8); Eosinophils % (auto) 2.8 % (0.0-7.0); Hematocrit 27.5 % (36.0-46.0); Hemoglobin 9.1 g/dL (12.2-16.2); Lymphocytes # (auto) 0.6 10 ^3/uL (0.4-5.4); Lymphocytes % (auto) 5.9 % (10.0-50.0); Mean Corpuscular Hemoglobin 31.2 pg (28.0-32.0); Mean Corpuscular Hgb Conc. 33.2 g/dL (32.0-36.0); Mean Corpuscular Volume 93.9 fL (80.0-100.0); Monocytes # (auto) 0.6 10 ^3/uL (0-1.3); Monocytes % (auto) 6.1 % (0.0-12.0); Neutrophils # (auto) 8.3 10 ^3/uL (1.6-8.6); Neutrophils % (auto) 84.9 % (37.0-80.0); Nucleated Red Blood Cells % 0.1 %; Platelet Count (auto) 174 10^3/uL (140-450); Red Blood Cells 2.93 10^6/uL (4.0-5.20); Red Cell Distribution Width 18.5 % (11.8-14.3); White Blood Cell 9.8 10^3/uL (4.4-10.8)
[2020-09-30 07:38] VITALS: BP 100/62
[2020-09-30 07:54] LABS: Potassium 4.5 mmol/L (3.5-5.1)
[2020-09-30 08:04] LABS: BUN/Creatinine Ratio 5.1; Calcium 8.7 mg/dL (8.5-10.1)
[2020-09-30] MEDS: TICAGRELOR 90 MG TAB PO SCH ×2 (09:54→22:05)
[2020-09-30] MEDS: ASPirin 81 mg TAB PO SCH (09:54)
[2020-09-30] MEDS: FUROSEMIDE 40 MG/4 ML VIAL IV SCH (09:54)
[2020-09-30] MEDS: CARVEDILOL 3.125 MG TAB PO SCH ×2 (09:55→22:00)
[2020-09-30] MEDS: PANTOPRAZOLE 40 MG TAB PO SCH (09:55)
[2020-09-30] MEDS ORDERED: EPTIFIBATIDE DRIP(0.75MG/ML) 100 ML IV SCH (12:00)
[2020-09-30] MEDS: SEVELAMER 800 MG TAB PO SCH ×2 (12:00→18:13)
[2020-09-30 13:00] VITALS: BP 91/57
[2020-09-30 16:00] VITALS: BP 93/58
[2020-09-30] MEDS: ATORVASTATIN 20 MG TAB PO SCH (22:05)
[2020-09-30] MEDS: ACETAMINOPHEN 500 MG TAB PO PRN (22:05)
[2020-09-30] MEDS: MORPHINE SULF INJ 2 MG/ML SYRINGE 1ML IV PRN (23:02)
[2020-10-01] VITALS (11 sets, daily range): BP systolic 58–98; BP diastolic 26–60
[2020-10-01] MEDS: PERITONEAL DIALYSIS 2.5% SOLN 2,000 ML IP SCH ×4 (02:00→14:41)
[2020-10-01] MEDS: EPTIFIBATIDE DRIP(0.75MG/ML) 100 ML IV SCH ×2 (03:27→17:04)
[2020-10-01] MEDS ORDERED: ALBUMIN 5% 250 ML IV ONE (04:30)
[2020-10-01] MEDS: ACCU-CHEK COMFORT CURVE STRIP VI SCH ×4 (06:10→21:42)
[2020-10-01] MEDS: SODIUM CHLOR 0.9% PF (SALINE LOCK) 10ML VIAL/SYR IV SCH ×4 (06:10→21:28)
[2020-10-01] MEDS: InsuLIN REG 1unit/0.01ml Soln (100units/ml) SC SCH ×4 (06:20→21:45)
[2020-10-01] MEDS: SEVELAMER 800 MG TAB PO SCH ×3 (08:00→17:42)
[2020-10-01] MEDS ORDERED: LIDOCAINE 2%HCL (LOCAL ANESTH.) INJ 20ML MDV ONE (08:10)
[2020-10-01] MEDS ORDERED: IOHEXOL 350 MG/ML 100ML IJ ONE (08:10)
[2020-10-01] MEDS ORDERED: ANGIOMAX 250 MG VIAL IV ONE (08:45)
[2020-10-01] MEDS ORDERED: MIDAZOLAM HCL 1MG/1ML-2 ML VIAL ONE (08:46)
[2020-10-01] MEDS ORDERED: fentaNYL CITRATE 100 MCG/2 ML VL ONE (08:46)
[2020-10-01] MEDS ORDERED: SODIUM CHL 0.9% 0 ML ONE (08:46)
[2020-10-01] MEDS ORDERED: IODIXANOL 320MG/ML 100ML BTL IV ONE (08:50)
[2020-10-01] MEDS: PANTOPRAZOLE 40 MG TAB PO SCH (10:00)
[2020-10-01] MEDS: ASPirin 81 mg TAB PO SCH (10:00)
[2020-10-01] MEDS: TICAGRELOR 90 MG TAB PO SCH (10:00)
[2020-10-01] MEDS: FUROSEMIDE 40 MG/4 ML VIAL IV SCH (10:00)
[2020-10-01] MEDS: CARVEDILOL 3.125 MG TAB PO SCH (10:00)
[2020-10-01] MEDS: HYDROcodone-ACET 5/325MG TAB PO PRN ×2 (13:10→21:42)
[2020-10-01] MEDS ORDERED: PERITONEAL DIALYSIS 2.5% SOLN 2,000 ML IP SCH (20:00)
[2020-10-01] MEDS: PERITONEAL DIALYSIS 1.5% SOLN 2,000 ML IP SCH (21:27)
[2020-10-01] MEDS: ATORVASTATIN 20 MG TAB PO SCH (21:28)
[2020-10-02] VITALS: BP 88/43
[2020-10-02] MEDS: PERITONEAL DIALYSIS 1.5% SOLN 2,000 ML IP SCH ×3 (02:10→15:04)
[2020-10-02 05:00] VITALS: BP 101/63
[2020-10-02] MEDS: ACCU-CHEK COMFORT CURVE STRIP VI SCH ×2 (06:13→12:16)
[2020-10-02] MEDS: InsuLIN REG 1unit/0.01ml Soln (100units/ml) SC SCH ×2 (06:13→12:20)
[2020-10-02] MEDS: SODIUM CHLOR 0.9% PF (SALINE LOCK) 10ML VIAL/SYR IV SCH ×2 (06:13→15:04)
[2020-10-02 06:24] LABS: Basophils # (auto) 0 10 ^3/uL (0-0.2); Basophils % (auto) 0.5 % (0.0-2.0); Eosinophils # (auto) 0.4 10 ^3/uL (0-0.8); Eosinophils % (auto) 5.5 % (0.0-7.0); Hematocrit 27.1 % (36.0-46.0); Hemoglobin 8.8 g/dL (12.2-16.2); Lymphocytes # (auto) 0.9 10 ^3/uL (0.4-5.4); Lymphocytes % (auto) 12.6 % (10.0-50.0); Mean Corpuscular Hemoglobin 30.7 pg (28.0-32.0); Mean Corpuscular Hgb Conc. 32.5 g/dL (32.0-36.0); Mean Corpuscular Volume 94.5 fL (80.0-100.0); Monocytes # (auto) 0.5 10 ^3/uL (0-1.3); Monocytes % (auto) 7.5 % (0.0-12.0); Neutrophils # (auto) 5.3 10 ^3/uL (1.6-8.6); Neutrophils % (auto) 73.9 % (37.0-80.0); Platelet Count (auto) 193 10^3/uL (140-450); Red Blood Cells 2.87 10^6/uL (4.0-5.20); White Blood Cell 7.2 10^3/uL (4.4-10.8)
[2020-10-02 06:39] LABS: Calcium 9.2 mg/dL (8.5-10.1); Potassium 3.4 mmol/L (3.5-5.1)
[2020-10-02 06:41] LABS: BUN/Creatinine Ratio 4.6
[2020-10-02 08:00] VITALS: BP 102/58
[2020-10-02] MEDS: EPTIFIBATIDE DRIP(0.75MG/ML) 100 ML IV SCH (08:40)
[2020-10-02] MEDS: PANTOPRAZOLE 40 MG TAB PO SCH (08:57)
[2020-10-02] MEDS: ASPirin 81 mg TAB PO SCH (08:57)
[2020-10-02] MEDS: SEVELAMER 800 MG TAB PO SCH ×2 (08:57→12:23)
[2020-10-02] MEDS ORDERED: CLOPIDOGREL BISULFATE 75 MG TAB PO SCH (10:00)
[2020-10-02] MEDS ORDERED: POTASSIUM CHL 20 Meq TABLET PO ONE (12:00)
[2020-10-02 12:47] VITALS: BP 90/57
[2020-10-02 13:41] VITALS: BP 102/58
== END 2020-10-02 15:16 | disposition home or self-care (01) | DRG 174 ==
LOC: ER 10:36 → EDBD 10:36 → TELE 14:34 → TELE-EAST 20:56
PROVIDERS: ADMIT Internal Medicine; ATTEND Internal Medicine
PROC: 3E1M39Z Irrigation of Peritoneal Cavity using Dialysate, Percutaneous Approach (ICD-10-PCS; 2020-09-27)
PROC: 4A023N7 Measurement of Cardiac Sampling and Pressure, Left Heart, Percutaneous Approach (ICD-10-PCS; principal; 2020-09-28)
PROC: B211YZZ Fluoroscopy of Multiple Coronary Arteries using Other Contrast (ICD-10-PCS; 2020-09-28)
PROC: B215YZZ Fluoroscopy of Left Heart using Other Contrast (ICD-10-PCS; 2020-09-28)
PROC: 3E073PZ Introduction of Platelet Inhibitor into Coronary Artery, Percutaneous Approach (ICD-10-PCS; 2020-09-28)
PROC: 02703ZZ Dilation of Coronary Artery, One Artery, Percutaneous Approach (ICD-10-PCS; 2020-09-28)
PROC: B41F1ZZ Fluoroscopy of Right Lower Extremity Arteries using Low Osmolar Contrast (ICD-10-PCS; 2020-09-28)
PROC: 02C03ZZ Extirpation of Matter from Coronary Artery, One Artery, Percutaneous Approach (ICD-10-PCS; 2020-09-28)
PROC: 3E073GC Introduction of Other Therapeutic Substance into Coronary Artery, Percutaneous Approach (ICD-10-PCS; 2020-09-28)
PROC: B41GYZZ Fluoroscopy of Left Lower Extremity Arteries using Other Contrast (ICD-10-PCS; 2020-10-01)
PROC: 4A023N7 Measurement of Cardiac Sampling and Pressure, Left Heart, Percutaneous Approach (ICD-10-PCS; 2020-10-01)
PROC: B211YZZ Fluoroscopy of Multiple Coronary Arteries using Other Contrast (ICD-10-PCS; 2020-10-01)
PROC: B215YZZ Fluoroscopy of Left Heart using Other Contrast (ICD-10-PCS; 2020-10-01)
DX: I21.4 Non-ST elevation (NSTEMI) myocardial infarction (principal); I50.43 Acute on chronic combined systolic (congestive) and diastolic (congestive) heart failure; E44.0 Moderate protein-calorie malnutrition; N18.6 End stage renal disease; E87.5 Hyperkalemia; D63.8 Anemia in other chronic diseases classified elsewhere; E66.9 Obesity, unspecified; Z99.2 Dependence on renal dialysis; E55.9 Vitamin D deficiency, unspecified; E78.5 Hyperlipidemia, unspecified; Z88.0 Allergy status to penicillin; E11.22 Type 2 diabetes mellitus with diabetic chronic kidney disease; I13.2 Hypertensive heart and chronic kidney disease with heart failure and with stage 5 chronic kidney disease, or end stage renal disease; I05.0 Rheumatic mitral stenosis; Z88.8 Allergy status to other drugs, medicaments and biological substances; Z79.02 Long term (current) use of antithrombotics/antiplatelets; Z79.82 Long term (current) use of aspirin; Z95.0 Presence of cardiac pacemaker; Z68.30 Body mass index [BMI] 30.0-30.9, adult; Z20.822 Contact with and (suspected) exposure to COVID-19; E83.39 Other disorders of phosphorus metabolism
CPT/HCPCS: 36415; 71045; 80048; 80053; 80061; 82150; 82306; 82550; 82962; 83690; 83735; 83880; 83970; 84100; 84484; 85025; 85610; 85652; 85730; 86141; 87081; 87426; 89051; 93005; 93306; 96372; 96374; 96375; 96376; 99152; 99153; 99291; C9113; G0378; J0610; J0885; J1815; J2250; J2405; Q9967